=== PATIENT | male | born 1995 | race Two or more races ===

== ENCOUNTER 2020-03-12 09:03 | Emergency (ER) | payer OTHER ==
[~2020-03-12] VITALS: Ht 162.6 cm; Wt 74.8 kg
[2020-03-12] MEDS ORDERED: DEPAKOTE ER500 MG PO (09:29)
[2020-03-12] MEDS ORDERED: [UNRECOGNIZED DRUG - OTHER] (09:30)
[2020-03-12] MEDS ORDERED: LAMICTAL25 MG (09:31)
[2020-03-12] MEDS ORDERED: PEPCID AC20 MG PO (15:48)
[2020-03-12] MEDS ORDERED: INTESTINEX680 M1 PO (15:48)
[2020-03-12] MEDS ORDERED: AIRBORNE EFFER1 EACH PO (15:48)
[2020-03-12] MEDS ORDERED: ONDANSETRON ODT4 MG SL (15:48)
== END 2020-03-12 17:38 | disposition home or self-care (01) ==
LOC: ER 09:03
DX: B34.9 Viral infection, unspecified (principal); J02.9 Acute pharyngitis, unspecified; A90 Dengue fever [classical dengue]; Z03.818 Encounter for observation for suspected exposure to other biological agents ruled out

== ENCOUNTER 2020-03-13 07:15 | Inpatient (IN) | payer OTHER ==
[~2020-03-13] VITALS: Ht 172.7 cm; Wt 95.3 kg
[~2020-03-13 07:15] MED LIST: AIRBORNE EFFER1 EACH PO; DEPAKOTE ER500 MG PO; INTESTINEX680 M1 PO; LAMICTAL25 MG; ONDANSETRON ODT4 MG SL; PEPCID AC20 MG PO; [UNRECOGNIZED DRUG - OTHER]
--- NOTE | 2020-03-13 07:37 | NUR ---
PTE REFIERE PAMELA DOLOR EN TODO EL CUERPO RASH Y FIEBRE SE GERRY S/V YSE UBIAC EN AREA DE OBSERVACION
--- NOTE | 2020-03-13 08:32 | NUR ---
PACIENTE ALERTA Y ORIENTADO EN NITIN PRESTON ESFERAS, ES ORIENTADO SOBRE ORDENES MEDICAS, REFIERE ENTENDER. MS L MONET COLECTA MUESTRAS DE KENDRA Y CANALIZA VENA, MRS TREVA ADMINISTRA MEDICAMENTOS. PENDIENTE MUESTRA DE ORINA, PTE TIENE ENVASE.
--- NOTE | 2020-03-13 15:35 | NUR ---
PT ALERTA Y ORIENTADO X3 ESFERAS EN COMPANIA DE FAMILIAR. SE RECIBE EN KRISTA CON BARANDAS ELEVADAS Y FRENOS COLOCADOS. HEPARIN LOCK E IVLFUIDS PATENTES. PT [place]. PENDIENTE VISITA DE INTERNISTA.
== END 2020-03-27 16:56 | disposition home or self-care (01) | DRG 596 ==
LOC: ER 07:15 → MEDJ 17:08 → SURH 17:08 → MEDI 17:08 → SURH 20:14 → ICU 03-17 19:16 → SURH 03-23 20:38
PROVIDERS: ADMIT Internal Medicine; ATTEND Internal Medicine
PROC: BW40ZZZ Ultrasonography of Abdomen (ICD-10-PCS; principal; 2020-03-13)
PROC: 05HB33Z Insertion of Infusion Device into Right Basilic Vein, Percutaneous Approach (ICD-10-PCS; 2020-03-17)
DX: L51.3 Stevens-Johnson syndrome-toxic epidermal necrolysis overlap syndrome (principal); Z20.828 Contact with and (suspected) exposure to other viral communicable diseases; T50.995A Adverse effect of other drugs, medicaments and biological substances, initial encounter